=== PATIENT | female | born 2000 | race American Indian/Alaskan Native ===

== ENCOUNTER 2019-03-13 18:54 | Emergency (ER) | payer OTHER ==
[2019-03-13 19:08] VITALS: BP 111/64
--- NOTE | 2019-03-13 21:09 | Emergency Department Report ---
ED Back Pain/Injury HPI - General Chief Complaint: Extremity Injury, Upper Stated Complaint: RT WRIST INJURY Source: patient Limitations: No Limitations - History of Present Illness Initial Comments: Patient is a 20-year-old female who comes to the ER complaining of several month history of wrist pain. She states that she fell on it about 4 months ago but never had it checked. This morning she woke up in the wrist persisted to bother her. She is neurovascularly intact. She is taking nothing to make her pain go away. She has not seen her primary care doctor. She is ambulatory and nontoxic. - Related Data Allergies Allergy/AdvReac Type Severity Reaction Status Date / Time No Known Allergies Allergy Unverified 03/13/19 19:08 ED Review of Systems ROS: Stated complaint: RT WRIST INJURY Other details as noted in HPI Comment: All other systems reviewed and negative ED Past Medical Hx - Past Medical History Medical history: no medical history Surgical history: no surgical history ED Back Pain Physical Exam - Exam General: Vital signs noted. No distress. Alert and acting appropriately. WDWN patient in NAD VS per RN flow sheet Alert and oriented to person, place and time. S1-S2. No S3 or S4. No systolic or diastolic murmur. No JVD. No pitting edema. Lungs clear to auscultation bilaterally anteriorly and posteriorly. Abdomen soft nontender bowel sounds X4 Moves all extremities well. Mood and affect appropriate. Back/Abdomen: No Abdominal Tenderness, No Perithoracic Tenderness, No Perilumbar Tenderness Neuro: Yes Normal Sensation, Yes Normal DTR's, Yes Normal Gait, No Motor Weakness ED Course Vital Signs 03/13/19 19:05 Temperature 98.8 F Pulse Rate 69 Respiratory 18 Rate Blood Pressure 111/64 O2 Sat by Pulse 100 Oximetry Ed Back Pain Tests - Tests Tests: Normal X Rays ED Medical Decision Making - Radiology Data Radiology results: report reviewed, image reviewed - Medical Decision Making SEVERAL MONTH OLD INJURY EXAM WNL NEUROVASC INTACT FULL ROM XRAY NOTED DC HOME WITH DC PLAN OF CARE AND FOLLOW UP Vital Signs 03/13/19 19:05 Temperature 98.8 F Pulse Rate 69 Respiratory 18 Rate Blood Pressure 111/64 O2 Sat by Pulse 100 Oximetry - Differential Diagnosis RO FX Critical care attestation.: If time is entered above; I have spent that time in minutes in the direct care of this critically ill patient, excluding procedure time. ED Disposition Clinical Impression: Wrist sprain Disposition: TO HOME OR SELFCARE Is pt being admited?: No Does the pt Need Aspirin: No Condition: Stable Instructions: Wrist Sprain (ED) Additional Instructions: DIET TOLERATED FOLLOW UP WITH ORTHO MD IN 1 WEEK IF PAIN PERSISTS REFERRAL BELOW ACTIVITY TOLERATED MOTRIN OR TYLENOL FOR PAIN Referrals: JOSE R MILLS MD [Primary Care Provider] - 3-5 Days LORIN CADENA MD [Staff Physician] - 3-5 Days Time of Disposition: 21:14
--- NOTE | 2019-03-13 22:35 | XRay Report ---
RIGHT WRIST 4 VIEWS INDICATION: PAIN. COMPARISON: No relevant prior imaging study available. FINDINGS: No acute fracture or dislocation is seen. No soft tissue swelling or foreign bodies. There are no significant degenerative changes. No radiographic evidence of joint effusion. IMPRESSION: 1. No acute findings. Signer Name: Praful Lopez MD Signed: 03/13/2019 10:31 PM Workstation Name: [id number]
== END 2019-03-13 21:43 | disposition home or self-care (01) ==
LOC: ED 18:54
DX: S63.501A Unspecified sprain of right wrist, initial encounter (principal); W19.XXXA Unspecified fall, initial encounter; Y93.89 Activity, other specified; Y92.89 Other specified places as the place of occurrence of the external cause; Y99.8 Other external cause status